=== PATIENT | female | born 1975 | race Caucasian/White ===

== ENCOUNTER 2016-05-18 06:02 | Day surgery (SDC) ==
[2016-05-18] MEDS ORDERED: LR 1,000 ML ONE (06:52)
[2016-05-18] MEDS ORDERED: DIPRIVAN 1% 50 ML ONE (09:00)
[2016-05-18] MEDS ORDERED: MYLICON DROPS (DOSE) MISC ONE (09:41)
[2016-05-18] MEDS ORDERED: VERSED ONE (10:38)
[2016-05-18] MEDS ORDERED: DEMEROL ONE (10:38)
[2016-05-18] MEDS ORDERED: DIPRIVAN 1% ONE ×2 (10:39→10:40)
[2016-05-18 11:11] VITALS: BP 115/58
[2016-05-18] MEDS ORDERED: NS 1,000 ML ONE (11:25)
[2016-05-18] MEDS ORDERED: XYLOCAINE-MPF 2% ONE (11:25)
--- NOTE | 2016-05-19 03:55 | OPERATIVE NOTE ---
PROCEDURE DATE: 05/18/2016 REFERRING PHYSICIAN: Mary Peterson MD. INDICATION FOR PROCEDURE: 1. Epigastric pain. 2. Loss of appetite. 3. Refractory GERD. 4. Iron-deficiency anemia. 5. Blood in stool. PROCEDURE PERFORMED: 1. Esophagogastroduodenoscopy with polypectomy. 2. Esophagogastroduodenoscopy with biopsy. CONSENT: Informed consent was obtained from the patient prior to the procedure. The risks, benefits, and alternatives were discussed. MEDICATION: The patient received monitored anesthesia care. PERFORMING PHYSICIAN: Lzizette Paniagua MD. ASSISTANTS: 1. ST Jori. 2. Anna Galarza RN. 3. Cameron Quigley CRNA. 4. Salinas Reyes MD (anesthesia). COMPLICATIONS: There were no complications. ESTIMATED BLOOD LOSS: Less than 1 mL. SPECIMENS REMOVED: 1. Duodenal biopsies. 2. Gastric biopsies. 3. Gastric polyps. FINDINGS: After sedation was achieved, the upper endoscope was inserted to the 2nd portion of the duodenum. The hypopharynx and tubular esophagus appeared grossly normal. There was a nonobstructive Schatzki's ring at the GEJ that remains intact. The GEJ was measured at 40 cm from the incisors. There is a hiatal hernia from 40-45 cm. In the gastric lumen, there was erosive gastritis. There were retained gastric secretions suggestive of gastric stasis. There were a few fundic gland polyps that were removed. There are smaller fundic gland polyps that were less than 1 cm in size that remained intact. The pylorus appeared normal. There was mild duodenitis in the bulb but the second portion of the duodenum appeared grossly normal. After the exam was complete, the lumen was decompressed and the scope was removed without incident. IMPRESSION: 1. Schatzki's ring, nonobstructive. 2. Erosive gastritis. 3. Retained gastric secretions suggestive of gastroparesis. 4. Fundic gland polyp. 5. Duodenitis. RECOMMENDATION: 1. We will await biopsy results. 2. Resume Nexium 40 mg daily. 3. Check a gastric emptying study. 4. Repeat esophagogastroduodenoscopy if develops recurrent dysphagia. 5. We will proceed with a colonoscopy as previously scheduled. 6. We will plan to see the patient in clinic in 4-6 weeks.
--- NOTE | 2016-05-19 03:57 | OPERATIVE NOTE ---
PROCEDURE DATE: 05/18/2016 REFERRING PHYSICIAN: Mary Peterson MD INDICATION FOR PROCEDURE: 1. Change in bowel habits. 2. Constipation alternating with diarrhea. 3. History of diverticulitis. 4. Blood in stool. 5. Iron deficiency anemia. PROCEDURE PERFORMED: 1. Colonoscopy with polypectomy. 2. Colonoscopy with Britta ink injection. CONSENT: Informed consent was obtained from the patient prior to the procedure. The risks, benefits, and alternatives were discussed. MEDICATIONS: The patient received monitored anesthesia care. PERFORMING PHYSICIAN: Lizzette Paniagua MD ASSISTANTS: 1. ST Jori 2. Anna Galarza RN 3. Cameron Quigley CRNA 4. Salinas Reyes MD (anesthesia). COMPLICATIONS: There were no complications. ESTIMATED BLOOD LOSS: Less than 1 mL. SPECIMENS REMOVED: 1. Polyp at 30 cm. 2. Rectal polyp. CECAL INTUBATION TIME: Two minutes. WITHDRAWAL TIME: Twenty minutes. PREP QUALITY: Fair. FINDINGS: After the EGD was performed, the patient was repositioned. The pediatric colonoscope was inserted to the terminal ileum. The terminal ileum, ileocecal valve, and appendiceal orifice appeared endoscopically normal. Throughout the entire colon, there was evidence of diverticulosis but no evidence of diverticulitis. The colonic mucosa appeared otherwise normal to 30 cm. At 30 cm, there was a greater than 20 mm semi-pedunculated polyp at 30 cm that was removed by snare cautery. Britta ink 0.5 mL x3 for total of 1.5 mL was injected circumferentially around the large polyp. Upon further withdrawal, there was a 10-20 mm rectal polyp that was removed by snare cautery. In the upper rectum, there were grade 1 internal hemorrhoids. On retroflexed view, there were medium external hemorrhoids. After the exam was complete, the lumen was decompressed. The scope was removed without incident. IMPRESSION: 1. Await biopsy results. 2. Repeat colonoscopy in the next 9-12 months as her prep was fair and to ensure clearing of the left colon in the area of the diverticulosis. 3. We will have the patient return to clinic in 4-6 weeks to assess interval progress.
== END 2016-05-18 11:13 | disposition home or self-care (01) ==
LOC: ENDO 06:02
PROVIDERS: ATTEND Internal Medicine Gastroenterology
DX: K22.2 Esophageal obstruction (principal); K29.00 Acute gastritis without bleeding; K31.84 Gastroparesis; K31.7 Polyp of stomach and duodenum; K29.80 Duodenitis without bleeding; K44.9 Diaphragmatic hernia without obstruction or gangrene; D50.9 Iron deficiency anemia, unspecified; K57.30 Diverticulosis of large intestine without perforation or abscess without bleeding; K63.5 Polyp of colon; K64.0 First degree hemorrhoids; K64.4 Residual hemorrhoidal skin tags; K21.9 Gastro-esophageal reflux disease without esophagitis; I10 Essential (primary) hypertension
CPT/HCPCS: 81025; 88305; 88312; J2175; J2250; J7030; J7120